=== PATIENT | female | born 1940 | race Caucasian/White ===

== ENCOUNTER 2018-05-12 15:06 | Inpatient (IN) | payer MEDICARE ==
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
[2018-05-12] MEDS ORDERED: Sodium Chloride 0.9% 1000 ML 1,000 ML IV STA (15:50)
[2018-05-12] MEDS ORDERED: Zofran 4 MG/2 ML VIAL IV ONE (15:53)
[2018-05-12] MEDS ORDERED: MORPHINE SULFATE 2 MG INJ IV ONE ×2 (15:53→19:10)
[2018-05-12 16:16] LABS: BASOPHIL % 0.1 % (0.0-0.4); Basophil (Absolute #) 0.02 (0-0.4); Eosinophil % 0.2 % (0.00-5.0); Eosinophil (Absolute #) 0.03 (0-0.5); Granulocyte Absolute (ANC) 15.52 (1.4-6.9); Granulocytes % 86.3 % (36.0-66.0); Hematocrit 36.4 % (35-47); Hemoglobin 11.6 gm/dl (12.0-16.0); Lymphocyte (Absolute #) 1.26 (1.0-4.6); Mean Cell Volume 89.9 fl (78-100); Mean Corpuscular Hemoglobin 28.6 pg (26-32); Mean Corpuscular Hgb Concent. 31.9 g/dl (32-36); Mean Platelet Volume 9.9 fl (6-9.5); Monocyte (Absolute #) 1.15 (0.0-1.3); Monocytes % 6.4 % (0.0-12.0); Platelet Count 222 K/mm3 (150-450); Red Blood Count 4.05 M/mm3 (4.1-5.4); Red Cell Distribution Width 15.6 % (11.5-14.0)
[2018-05-12 16:25] LABS: ALBUMIN 3.5 g/dL (3.5-5.0); BILIRUBIN,TOTAL 0.7 mg/dL (0.2-1.3); Calcium 9.2 mg/dL (8.4-10.2); Creatinine 1 2.85 mg/dL (0.52-1.04); Potassium 3.9 mmol/L (3.5-5.1); Total Protein 6.5 g/dL (6.3-8.2)
[2018-05-12] MEDS ORDERED: MORPHINE SULFATE 2 MG INJ ONE ×2 (16:39→19:22)
[2018-05-12] MEDS ORDERED: Zofran 4 MG/2 ML VIAL ONE (16:39)
[2018-05-12] MEDS ORDERED: Sodium Chloride 0.9% 1000 ML 1,000 ML ONE (16:40)
--- NOTE | 2018-05-12 16:48 | XRAY ---
Indication: Pain following fall 2 days ago. Multiple contiguous axial images obtained through the head without contrast. Comparison: None Age-appropriate global atrophy and minimal periventricular degenerative micro-ischemia. No acute intracranial hemorrhage, abnormal extra-axial fluid collection, or mass effect. Fourth ventricle is midline without hydrocephalus. Bony calvarium intact. Visualized paranasal sinuses and mastoid air cells are clear. Impression: Nonacute senile brain. CTDI 50.97
--- NOTE | 2018-05-12 16:52 | XRAY ---
Indication: Pain following fall 2 days ago. Multiple contiguous axial images obtained through the cervical spine. Sagittal and coronal reformatted images obtained. Comparison: None Age-related osteopenia. Axial images negative for acute fracture, suspicious bony lesions, or spinal canal stenosis. Minimal multilevel anterior endplate spurring. Mild C2-C5 degenerative facet hypertrophy, left greater than right. Sagittal and coronal reformatted images demonstrates normal alignment with disc spaces maintained. No acute compression fracture, subluxation, or jumped facet. Normal appearing craniocervical junction. Visualized noncontrasted soft tissues demonstrates mild scattered carotid calcifications bilaterally and mild left apical pleural-parenchymal scarring. CT head reported separately. Impression: 1. Negative acute fracture/subluxation. 2. Osteopenia and multilevel degenerative changes. CTDI 52.29
--- NOTE | 2018-05-12 17:00 | XRAY ---
Indication: Pain following fall. Comparison: None 3 views of the lumbar spine demonstrate 5 lumbar vertebral segments in normal alignment with vertebral body heights and disc spaces maintained. There is osteopenia, mild multilevel degenerative spondylosis, extensive vascular calcifications, and right upper quadrant surgical clips. No other bony, articular, or soft tissue abnormalities. Impression: Nonacute lumbar spine with chronic features.
--- NOTE | 2018-05-12 17:02 | XRAY ---
Indication: Pain following fall. Comparison: None AP pelvis and 2 views of the left and right hip demonstrates osteopenia, mild bilateral hip degenerative arthropathy, mild degenerative changes of the visualized lumbar spine, mild degenerative changes of the pubis symphysis, small left intratrochanteric bone island, bilateral gluteal calcified injection granulomas, extensive scattered vascular calcifications, and overlying suture material.. No other bony, articular, or soft tissue abnormalities. Impression: Nonacute exam with chronic features.
--- NOTE | 2018-05-12 17:04 | XRAY ---
Indication: Pain following fall. Comparison: None 3 views of the right elbow demonstrates mild osteopenia, small olecranon process spurring, scattered vascular calcifications, and a IV access catheter. No other bony, articular, or soft tissue abnormalities.
[2018-05-12 20:34] LABS: Appearance CLOUDY (CLEAR); Bilirubin NEGATIVE (NEGATIVE); Blood LARGE Ery/ul (0-5); Glucose 50 mg/dL (NEGATIVE); Ketones NEGATIVE (NEGATIVE); Leukocyte Esterase SMALL (NEGATIVE); Nitrite NEGATIVE (NEGATIVE); Protein,Urine Dip 100 (Negative); Specific Gravity 1.012 (1.005-1.025); Urobilinogen NEGATIVE mg/dL (0-1)
[2018-05-12] MEDS ORDERED: LEVOFLOXACIN 750MG/150ML D5W 750 MG/150 ML BAG IV STA (20:51)
[2018-05-12] MEDS ORDERED: LEVOFLOXACIN 750MG/150ML D5W 750 MG/150 ML BAG IV ONE (21:14)
[2018-05-12] MEDS ORDERED: MORPHINE SULFATE 2 MG INJ IV PRN (22:28)
[2018-05-12] MEDS: Sodium Chloride 0.9% 1000 ML 1,000 ML IV SCH (22:38)
[2018-05-12] MEDS ORDERED: Sodium Chloride 0.9% 250 ML 250 ML IV SCH (23:29)
[2018-05-12] MEDS ORDERED: ZOCOR 20MG ONE (23:34)
[2018-05-12] MEDS: XARELTO 10 MG TABLET PO SCH (23:47)
[2018-05-12] MEDS: SUBLIMAZE 100 MCG/2 ML IV PRN (23:50)
[2018-05-13] MEDS ORDERED: Sodium Chloride 0.9% 250 ML 250 ML IV ONE (03:37)
[2018-05-13 05:31] LABS: BASOPHIL % 0.2 % (0.0-0.4); Basophil (Absolute #) 0.03 (0-0.4); Eosinophil % 1.3 % (0.00-5.0); Eosinophil (Absolute #) 0.18 (0-0.5); Granulocytes % 74.6 % (36.0-66.0); Hemoglobin 10.3 gm/dl (12.0-16.0); Lymphocyte (Absolute #) 1.96 (1.0-4.6); Lymphocytes % 14.1 % (24.0-44.0); Mean Cell Volume 89.9 fl (78-100); Mean Corpuscular Hgb Concent. 31.2 g/dl (32-36); Mean Platelet Volume 9.9 fl (6-9.5); Monocyte (Absolute #) 1.37 (0.0-1.3); Monocytes % 9.8 % (0.0-12.0); Platelet Count 179 K/mm3 (150-450); Red Blood Count 3.67 M/mm3 (4.1-5.4); Red Cell Distribution Width 15.3 % (11.5-14.0); White Blood Count 13.9 K/mm3 (4.0-10.5)
[2018-05-13 05:44] LABS: ANION GAP 11.1 MEQ/L (5-15); Calcium 8.6 mg/dL (8.4-10.2); Creatinine 1 3.08 mg/dL (0.52-1.04); Potassium 3.5 mmol/L (3.5-5.1)
[2018-05-13] MEDS ORDERED: GlucaGen 1 MG IM PRN (05:51)
[2018-05-13] MEDS ORDERED: D50W 50 ml Abboject IV PRN (05:51)
[2018-05-13] MEDS ORDERED: Glutose 15 GM ORAL GEL PO PRN (05:51)
[2018-05-13] MEDS ORDERED: D50W 50 ml Abboject IV ONE (05:55)
[2018-05-13 06:25] LABS: BAND 2 % (0.0-2.0); Eosinophil 1 % (0.00-3.0); Lymphocytes 15 % (24-44); Monocyte 7 % (0.0-12.0); Neutrophils 75 % (36.0-66.0); Total Cells Counted 100
[2018-05-13 06:27] LABS: ANISOCYTOSIS 1+; Platelet Estimate NORMAL (NORMAL); Poikilocytosis 1+
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
[2018-05-13] MEDS ORDERED: Sodium Chloride 0.9% 500 ML 500 ML IV ONE (08:59)
--- NOTE | 2018-05-13 09:47 | XRAY ---
Indication: Pain. Comparison: None AP/lateral right knee demonstrates moderate/advanced tricompartmental degenerative changes, medial vascular clips, and scattered vascular calcifications. No other bony, articular, or soft tissue abnormalities.
--- NOTE | 2018-05-13 09:50 | XRAY ---
Indication: Pain. 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 No other bony, articular, or soft tissue abnormalities.
[2018-05-13] MEDS: Lopressor 50 MG PO SCH (09:55)
[2018-05-13] MEDS: Protonix 40MG Tablet PO SCH (09:55)
[2018-05-13] MEDS ORDERED: NON-FORMULARY ITEM (Omeprazole 20 Mg [Prilosec 20 Mg] 20 MG) PO SCH (10:00)
[2018-05-13] MEDS: Sodium Chloride 0.9% 1000 ML 1,000 ML IV SCH ×2 (15:17→22:14)
[2018-05-13] MEDS ORDERED: ZOCOR 20MG PO SCH (22:00)
[2018-05-13] MEDS: XARELTO 10 MG TABLET PO SCH (22:16)
[2018-05-14] MEDS: SUBLIMAZE 100 MCG/2 ML IV PRN (02:31)
[2018-05-14] MEDS: Sodium Chloride 0.9% 1000 ML 1,000 ML IV SCH (04:57)
[2018-05-14] MEDS: PERCOCET TABLET 5/325MG PO PRN ×2 (05:41→16:38)
[2018-05-14 05:54] LABS: BASOPHIL % 0.1 % (0.0-0.4); Basophil (Absolute #) 0.02 (0-0.4); Eosinophil (Absolute #) 0.13 (0-0.5); Granulocyte Absolute (ANC) 10.36 (1.4-6.9); Granulocytes % 76.8 % (36.0-66.0); Hematocrit 31.3 % (35-47); Hemoglobin 9.7 gm/dl (12.0-16.0); Lymphocyte (Absolute #) 1.72 (1.0-4.6); Lymphocytes % 12.8 % (24.0-44.0); Mean Cell Volume 90.7 fl (78-100); Mean Corpuscular Hemoglobin 28.1 pg (26-32); Monocyte (Absolute #) 1.25 (0.0-1.3); Monocytes % 9.3 % (0.0-12.0); Platelet Count 171 K/mm3 (150-450); Red Blood Count 3.45 M/mm3 (4.1-5.4); Red Cell Distribution Width 15.4 % (11.5-14.0); White Blood Count 13.5 K/mm3 (4.0-10.5)
[2018-05-14 06:14] LABS: ALBUMIN 2.7 g/dL (3.5-5.0); ANION GAP 13.4 MEQ/L (5-15); BILIRUBIN,TOTAL 0.5 mg/dL (0.2-1.3); Calcium 8.5 mg/dL (8.4-10.2); Creatinine 1 3.65 mg/dL (0.52-1.04); Potassium 4.3 mmol/L (3.5-5.1); Total Protein 5.3 g/dL (6.3-8.2)
--- NOTE | 2018-05-14 08:14 | PCM.NOTE ---
Date and Time: 05/14/18811 Subjective Assessment: patient still complains of hurting all over and legs feel weak, states she feels slightly better than arrived Objective Exam General Appearance: no apparent distress, obese Neurologic Exam: alert, oriented x 3 Skin Exam: normal color, warm, dry Respiratory Exam: normal breath sounds, lungs clear, No respiratory distress Cardiovascular Exam: regular rate/rhythm, normal heart sounds Gastrointestinal/Abdomen Exam: soft, No tenderness, No mass OBJECTIVE DATA Vital Signs: Vital Signs - 24 hr Temp Pulse Resp BP Pulse Ox 05/14/18 07:56 96 05/14/18 07:44 98.3 F 89 18 120/56 96 05/14/18 04:00 98.2 F 92 H 21 119/56 96 05/14/18 00:00 97.7 F 87 18 157/67 99 05/13/18 19:37 97.9 F 90 16 108/49 97 05/13/18 19:10 100 05/13/18 16:00 97.8 F 80 18 101/69 96 05/13/18 15:32 96 05/13/18 14:56 99 05/13/18 12:00 98 F 75 18 103/48 95 Oxygen-Last 24 hours O2 Percentage 4 Liters = 36% Pain Assessment - Last Documented Pain Intensity 6 Pain Scale Used 0-10 Pain Scale Intake and Output: Intake & Output 05/11/18 05/12/18 05/13/18 05/14/18 11:59 11:59 11:59 11:59 Intake Total 1011 4794 Output Total 1100 Balance 1011 3694 Weight 92 kg 94.9 kg Lab Results: Accuchecks Date 05/13/18 Date 05/13/18 Date 05/13/18 Accucheck Value: 176 Accucheck Value: 146 Accucheck Value: 77 Lab Results-Last 24 Hours 05/12/18 05/13/18 05/14/18 Range/Units Unknown 13:57 05:38 WBC 13.5 H (4.0-10.5) K/mm3 RBC 3.45 L (4.1-5.4) M/mm3 Hgb 9.7 L (12.0-16.0) gm/dl Hct 31.3 L (35-47) % MCV 90.7 (78-100) fl MCH 28.1 (26-32) pg MCHC 31.0 L (32-36) g/dl RDW 15.4 H (11.5-14.0) % Plt Count 171 (150-450) K/mm3 MPV 10.0 H (6-9.5) fl Gran % 76.8 H (36.0-66.0) % Eos # (Auto) 0.13 (0-0.5) Absolute Lymphs (auto) 1.72 (1.0-4.6) Absolute Monos (auto) 1.25 (0.0-1.3) Lymphocytes % 12.8 L (24.0-44.0) % Monocytes % 9.3 (0.0-12.0) % Eosinophils % 1.0 (0.00-5.0) % Basophils % 0.1 (0.0-0.4) % Absolute Granulocytes 10.36 H (1.4-6.9) Basophils # 0.02 (0-0.4) Sodium (137-145) mmol/L Potassium (3.5-5.1) mmol/L Chloride (98-107) mmol/L Carbon Dioxide (22-30) mmol/L Anion Gap (5-15) MEQ/L BUN (7-17) mg/dL Creatinine (0.52-1.04) mg/dL Estimated GFR ML/MIN Glucose (74-106) mg/dL Hemoglobin A1c 6.52 H (4.5-6.0) % Calcium (8.4-10.2) mg/dL Total Bilirubin (0.2-1.3) mg/dL AST (14-36) U/L ALT (0-35) U/L Alkaline Phosphatase (38-126) U/L Serum Total Protein (6.3-8.2) g/dL Albumin (3.5-5.0) g/dL Urine pH 6.0 Urine Myoglobin 2120 H (0-24) ng/mL 05/14/18 Range/Units 05:38 WBC (4.0-10.5) K/mm3 RBC (4.1-5.4) M/mm3 Hgb (12.0-16.0) gm/dl Hct (35-47) % MCV (78-100) fl MCH (26-32) pg MCHC (32-36) g/dl RDW (11.5-14.0) % Plt Count (150-450) K/mm3 MPV (6-9.5) fl Gran % (36.0-66.0) % Eos # (Auto) (0-0.5) Absolute Lymphs (auto) (1.0-4.6) Absolute Monos (auto) (0.0-1.3) Lymphocytes % (24.0-44.0) % Monocytes % (0.0-12.0) % Eosinophils % (0.00-5.0) % Basophils % (0.0-0.4) % Absolute Granulocytes (1.4-6.9) Basophils # (0-0.4) Sodium 135 L (137-145) mmol/L Potassium 4.3 D (3.5-5.1) mmol/L Chloride 109 H (98-107) mmol/L Carbon Dioxide 17 L (22-30) mmol/L Anion Gap 13.4 (5-15) MEQ/L BUN 51 H (7-17) mg/dL Creatinine 3.65 H (0.52-1.04) mg/dL Estimated GFR 12.7 ML/MIN Glucose 153 H (74-106) mg/dL Hemoglobin A1c (4.5-6.0) % Calcium 8.5 (8.4-10.2) mg/dL Total Bilirubin 0.50 (0.2-1.3) mg/dL AST 108 H (14-36) U/L ALT 81 H (0-35) U/L Alkaline Phosphatase 68 (38-126) U/L Serum Total Protein 5.3 L (6.3-8.2) g/dL Albumin 2.7 L (3.5-5.0) g/dL Urine pH Urine Myoglobin (0-24) ng/mL Radiology Exams: Radiology Procedures Category Date Time Status ANKLE (2V) Routine Exams 05/13/18 09:36 Completed CERVICAL SPINE WO CONTRAST [CT] Stat Exams 05/12/18 15:51 Completed ELBOW (MINIMUM 3 VIEWS) Stat Exams 05/12/18 15:53 Completed HEAD WITHOUT CONTRAST [CT] Stat Exams 05/12/18 15:52 Completed HIPS ISHAN(2V) INCL PEL IF DONE Stat Exams 05/12/18 15:52 Completed KNEE (1 OR 2 VIEW) Routine Exams 05/13/18 09:36 Completed LUMBAR LIMITED (2 OR 3 VIEWS) Stat Exams 05/12/18 15:50 Completed Assessment/Plan (1) Rhabdomyolysis Current Visit: Yes Status: Acute Onset Date: ~05/13/18 Assessment & Plan: will repeat ck today, patient fluid rate has been increased and gregory anchored. 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 was given levaquin 750mg x 1 dose in ER when she arrived Code(s): N39.0 - URINARY TRACT INFECTION, SITE NOT SPECIFIED (4) Diabetes mellitus type 2 in nonobese Current Visit: Yes Status: Acute Onset Date: ~05/13/18 Code(s): E11.9 - TYPE 2 DIABETES MELLITUS WITHOUT COMPLICATIONS
[2018-05-14] MEDS: Lopressor 50 MG PO SCH (09:38)
[2018-05-14] MEDS: Protonix 40MG Tablet PO SCH (09:38)
[2018-05-14 13:20] LABS: Iron 53 ug/dL (37-170); Iron Saturation 25 % (20-39); TIBC 215 ug/dL (265-462)
[2018-05-14] MEDS: NON-FORMULARY ITEM PO SCH ×2 (13:48→22:14)
[2018-05-14 18:27] LABS: CREATININE,URINE RANDOM 39.4 MG/DL
[2018-05-14] MEDS: XARELTO 10 MG TABLET PO SCH (22:04)
[2018-05-15] MEDS: PERCOCET TABLET 5/325MG PO PRN ×3 (05:50→15:18)
[2018-05-15 06:06] LABS: BASOPHIL % 0.2 % (0.0-0.4); Basophil (Absolute #) 0.03 (0-0.4); Eosinophil (Absolute #) 0.27 (0-0.5); Granulocytes % 75.5 % (36.0-66.0); Hematocrit 32.8 % (35-47); Hemoglobin 10.3 gm/dl (12.0-16.0); Lymphocyte (Absolute #) 1.86 (1.0-4.6); Lymphocytes % 13.7 % (24.0-44.0); Mean Cell Volume 90.4 fl (78-100); Mean Corpuscular Hgb Concent. 31.4 g/dl (32-36); Mean Platelet Volume 9.6 fl (6-9.5); Monocyte (Absolute #) 1.17 (0.0-1.3); Monocytes % 8.6 % (0.0-12.0); Platelet Count 192 K/mm3 (150-450); Red Blood Count 3.63 M/mm3 (4.1-5.4); Red Cell Distribution Width 15.4 % (11.5-14.0); White Blood Count 13.5 K/mm3 (4.0-10.5)
[2018-05-15 06:15] LABS: Mean Corpuscular Hemoglobin 28.3 pg (26-32)
[2018-05-15 06:23] LABS: ALBUMIN 2.9 g/dL (3.5-5.0); ANION GAP 14.2 MEQ/L (5-15); BILIRUBIN,TOTAL 0.4 mg/dL (0.2-1.3); Calcium 8.9 mg/dL (8.4-10.2); Creatinine 1 4.28 mg/dL (0.52-1.04); Potassium 4.6 mmol/L (3.5-5.1); Total Protein 5.7 g/dL (6.3-8.2)
--- NOTE | 2018-05-15 08:48 | PCM.NOTE ---
Date and Time: 05/15/18 0846 Subjective Assessment: patient is still hurting all over. tolerating po intake, has urine output in gregory Objective Exam General Appearance: no apparent distress, alert Skin Exam: normal color, warm, dry Respiratory Exam: normal breath sounds, lungs clear, No respiratory distress Cardiovascular Exam: regular rate/rhythm, normal heart sounds Gastrointestinal/Abdomen Exam: soft, No tenderness, No mass Extremity Exam: normal inspection, normal range of motion OBJECTIVE DATA Vital Signs: Vital Signs - 24 hr Temp Pulse Resp BP Pulse Ox 05/15/18 07:04 98.1 F 94 H 19 113/53 98 05/15/18 06:30 98 05/15/18 04:00 98 F 91 H 20 142/67 98 05/14/18 23:43 97.9 F 77 18 126/56 98 05/14/18 19:16 98.3 F 76 18 135/56 99 05/14/18 18:56 99 05/14/18 16:32 97.8 F 87 20 117/52 99 05/14/18 12:00 98.1 F 83 15 101/44 94 L Pain Assessment - Last Documented Pain Intensity 10 Pain Scale Used 0-10 Pain Scale Intake and Output: Intake & Output 05/12/18 05/13/18 05/14/18 05/15/18 11:59 11:59 11:59 11:59 Intake Total 1011 5034 540 Output Total 1100 650 Balance 1011 3934 -110 Weight 92 kg 94.9 kg 101.7 kg Lab Results: Accuchecks Date 05/15/18 Date 05/14/18 Date 05/14/18 Date 05/14/18 Time 22:15 Time 16:30 Time 10:56 Accucheck Value: 162 Accucheck Value: 207 Accucheck Value: 238 Accucheck Value: 196 Lab Results-Last 24 Hours 05/14/18 05/14/18 05/14/18 Range/Units 05:38 13:00 18:13 WBC (4.0-10.5) K/mm3 RBC (4.1-5.4) M/mm3 Hgb (12.0-16.0) gm/dl Hct (35-47) % MCV (78-100) fl MCH (26-32) pg MCHC (32-36) g/dl RDW (11.5-14.0) % Plt Count (150-450) K/mm3 MPV (6-9.5) fl Gran % (36.0-66.0) % Eos # (Auto) (0-0.5) Absolute Lymphs (auto) (1.0-4.6) Absolute Monos (auto) (0.0-1.3) Lymphocytes % (24.0-44.0) % Monocytes % (0.0-12.0) % Eosinophils % (0.00-5.0) % Basophils % (0.0-0.4) % Absolute Granulocytes (1.4-6.9) Basophils # (0-0.4) Sodium (137-145) mmol/L Potassium (3.5-5.1) mmol/L Chloride (98-107) mmol/L Carbon Dioxide (22-30) mmol/L Anion Gap (5-15) MEQ/L BUN (7-17) mg/dL Creatinine (0.52-1.04) mg/dL Estimated GFR ML/MIN Glucose (74-106) mg/dL Calcium (8.4-10.2) mg/dL Magnesium (1.6-2.3) mg/dL Iron 53 (37-170) ug/dL TIBC 215 L (265-462) ug/dL Iron Saturation 25 (20-39) % Total Bilirubin (0.2-1.3) mg/dL AST (14-36) U/L ALT (0-35) U/L Alkaline Phosphatase (38-126) U/L Creatine Kinase 1417 H (30-135) U/L Serum Total Protein (6.3-8.2) g/dL Albumin (3.5-5.0) g/dL Ur Random Creatinine 39.4 MG/DL U Random Total Protein 77 H (0-12) mg/dL Urine Sodium (30-90) mmol/L 05/14/18 05/15/18 05/15/18 Range/Units Unknown 05:40 05:40 WBC 13.5 H (4.0-10.5) K/mm3 RBC 3.63 L (4.1-5.4) M/mm3 Hgb 10.3 L (12.0-16.0) gm/dl Hct 32.8 L (35-47) % MCV 90.4 (78-100) fl MCH 28.3 (26-32) pg MCHC 31.4 L (32-36) g/dl RDW 15.4 H (11.5-14.0) % Plt Count 192 (150-450) K/mm3 MPV 9.6 H (6-9.5) fl Gran % 75.5 H (36.0-66.0) % Eos # (Auto) 0.27 (0-0.5) Absolute Lymphs (auto) 1.86 (1.0-4.6) Absolute Monos (auto) 1.17 (0.0-1.3) Lymphocytes % 13.7 L (24.0-44.0) % Monocytes % 8.6 (0.0-12.0) % Eosinophils % 2.0 (0.00-5.0) % Basophils % 0.2 (0.0-0.4) % Absolute Granulocytes 10.20 H (1.4-6.9) Basophils # 0.03 (0-0.4) Sodium 138 (137-145) mmol/L Potassium 4.6 (3.5-5.1) mmol/L Chloride 111 H (98-107) mmol/L Carbon Dioxide 17 L (22-30) mmol/L Anion Gap 14.2 (5-15) MEQ/L BUN 61 H (7-17) mg/dL Creatinine 4.28 H (0.52-1.04) mg/dL Estimated GFR 10.6 ML/MIN Glucose 162 H (74-106) mg/dL Calcium 8.9 (8.4-10.2) mg/dL Magnesium 2.4 H (1.6-2.3) mg/dL Iron (37-170) ug/dL TIBC (265-462) ug/dL Iron Saturation (20-39) % Total Bilirubin 0.40 (0.2-1.3) mg/dL AST 90 H (14-36) U/L ALT 87 H (0-35) U/L Alkaline Phosphatase 72 (38-126) U/L Creatine Kinase (30-135) U/L Serum Total Protein 5.7 L (6.3-8.2) g/dL Albumin 2.9 L (3.5-5.0) g/dL Ur Random Creatinine MG/DL U Random Total Protein (0-12) mg/dL Urine Sodium 37 (30-90) mmol/L Radiology Exams: Radiology Procedures Category Date Time Status ANKLE (2V) Routine Exams 05/13/18 09:36 Completed KNEE (1 OR 2 VIEW) Routine Exams 05/13/18 09:36 Completed Multi-Disciplinary Progress Notes: Multi-Disciplinary Progress Notes 05/14/18 16:36 Physical Therapy Note by Ana Johnson Patient was seen at bedside for total of 32 minutes for therapeutic exercise x 22 minutes and functional mobility training x 10 minutes. Performed active LE x 10 reps - ankle pumps, quad sets, glut sets, hip IR/ER and active-assisted ROM x 10 reps - heel slides, hip abd/adduction, SLR. Patient reporting increased pain right hip and knee with ROM. Verbalizing some soreness with left hip and knee but to a lesser degree Sat on EOB with mod assist and use of bedrail. Once weight centered patient able to sit on EOB without CGA Stood at bedside with walker. Able to come to stand with min assist. Flexed posture in standing at hips and knees. Only tolerated standing x 30 seconds. Assisted back to bed with min assist for LE placement then assist of 2 with draw sheet to position properly in bed. Patient was complaining of heels being sore. No observed redness or softening. Heels were elevated off bed. Patient reported no increase in pain after treatment. Initialized on 05/14/18 16:36 - END OF NOTE 05/14/18 15:33 Case Management Note by Kalie Edwards LEVEL I WELL LEVEL OF CARE IS ON QUEUE Initialized on 05/14/18 15:33 - END OF NOTE 05/14/18 14:46 Case Management Note by Jeni Mccord IMPORTANT MESSAGE FROM [employer] SIGNED AND PLACED ON THE CHART. Initialized on 05/14/18 14:46 - END OF NOTE 05/14/18 14:41 Case Management Note by Jeni Mccord S/W PT AND LAY CAREGIVER (GUSTAVO SHIRLEY) RE: REHAB STAY AT [facility] FOR PT/OT AND THEY WERE AGREEABLE W/ THIS PLAN. MM NOTIFIED OF REFERRAL AND CLINICAL DATA FAXED TO THEM. STAFF FROM [facility] WILL COME TO ASSESS PT LATER. WILL CONT. TO FOLLOW PT DURING THIS STAY TO ASSESS FOR OTHER D/C NEEDS. Initialized on 05/14/18 14:41 - END OF NOTE Assessment/Plan (1) Rhabdomyolysis Current Visit: Yes Status: Acute Onset Date: ~05/13/18 Assessment & Plan: cpk trending down and LFT's are improving. Code(s): M62.82 - RHABDOMYOLYSIS (2) Renal insufficiency Current Visit: Yes Status: Acute Onset Date: ~05/13/18 Assessment & Plan: worsening at this time, will continue to monitor. appreciate nephrology consult (3) UTI (urinary tract infection) Current Visit: Yes Status: Acute Onset Date: ~05/12/18 Assessment & Plan: rocephin ordered based on culture and avoid nephrotoxic drugs at this time Code(s): N39.0 - URINARY TRACT INFECTION, SITE NOT SPECIFIED (4) Diabetes mellitus type 2 in nonobese Current Visit: Yes Status: Acute Onset Date: ~05/13/18 Code(s): E11.9 - TYPE 2 DIABETES MELLITUS WITHOUT COMPLICATIONS
[2018-05-15] MEDS: Protonix 40MG Tablet PO SCH (09:13)
[2018-05-15] MEDS: Lopressor 50 MG PO SCH (09:13)
[2018-05-15] MEDS: NON-FORMULARY ITEM PO SCH ×2 (09:14→21:44)
[2018-05-15] MEDS: ROCEPHIN 1 Gm-D5w 50 ml Bag** 1 G/50 ML IVPB IV SCH (09:17)
--- NOTE | 2018-05-15 13:37 | XRAY ---
Indication: detention rehabilitation stay. Comparison: January 31, 2015. Portable chest remains clear. Heart is not enlarged for AP portable technique and again demonstrates CABG surgery. Bony thorax intact again with mild osteopenia and degenerative changes. Impression: Stable nonacute chest with chronic features.
[2018-05-15] MEDS ORDERED: NovoLOG Insulin SQ PRN (16:06)
[2018-05-15] MEDS: Norco 10/325 MG Tablet PO PRN (21:38)
[2018-05-15] MEDS: XARELTO 10 MG TABLET PO SCH (21:39)
[2018-05-16] MEDS: Norco 10/325 MG Tablet PO PRN ×2 (03:35→11:34)
[2018-05-16 05:45] LABS: BASOPHIL % 0.3 % (0.0-0.4); Basophil (Absolute #) 0.04 (0-0.4); Eosinophil % 2.6 % (0.00-5.0); Eosinophil (Absolute #) 0.33 (0-0.5); Granulocyte Absolute (ANC) 9.44 (1.4-6.9); Granulocytes % 74.2 % (36.0-66.0); Hematocrit 32.2 % (35-47); Hemoglobin 10.1 gm/dl (12.0-16.0); Lymphocyte (Absolute #) 1.88 (1.0-4.6); Lymphocytes % 14.8 % (24.0-44.0); Mean Cell Volume 91.2 fl (78-100); Mean Corpuscular Hemoglobin 28.6 pg (26-32); Mean Corpuscular Hgb Concent. 31.4 g/dl (32-36); Mean Platelet Volume 9.9 fl (6-9.5); Monocyte (Absolute #) 1.03 (0.0-1.3); Monocytes % 8.1 % (0.0-12.0); Platelet Count 195 K/mm3 (150-450); Red Blood Count 3.53 M/mm3 (4.1-5.4); Red Cell Distribution Width 15.7 % (11.5-14.0); White Blood Count 12.7 K/mm3 (4.0-10.5)
[2018-05-16 06:03] LABS: ALBUMIN 2.8 g/dL (3.5-5.0); ANION GAP 13.1 MEQ/L (5-15); BILIRUBIN,TOTAL 0.5 mg/dL (0.2-1.3); Calcium 8.9 mg/dL (8.4-10.2); Creatinine 1 4.36 mg/dL (0.52-1.04); Potassium 4.4 mmol/L (3.5-5.1); Total Protein 5.5 g/dL (6.3-8.2)
[2018-05-16] MEDS: NON-FORMULARY ITEM PO SCH (09:50)
[2018-05-16] MEDS: Protonix 40MG Tablet PO SCH (09:50)
[2018-05-16] MEDS: Lopressor 50 MG PO SCH (09:50)
[2018-05-16] MEDS: ROCEPHIN 1 Gm-D5w 50 ml Bag** 1 G/50 ML IVPB IV SCH (09:51)
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
--- NOTE | 2018-05-16 10:48 | PCM.DS ---
Discharge Summary Date of Admission: 05/13/18 08:40 Admitting Physician: ROSALBA DAI Consults: Consults on Case 05/13/18 05:51 Notify Physician 05/13/18 08:46 Consult Nephrology ROUTINE Primary Care Provider: ROSALBA DAI Allergies Allergies Penicillins Allergy (Verified 05/12/18 22:42) Sulfa (Sulfonamide Antibiotics) [Sulfa(Sulfonamide Antibiotics)] Allergy ( Verified 05/12/18 22:42) Hospital Summary - Hospital Course Hospital Course: is a 78 year old female pt of Dr. Dai with chronic back pain and osteoarthritis, HTN, afib (on xarelto), hx CABG remotely, chronic renal insufficiency, and DM II who fell 6 d ago and spent 12h down on the floor. She came to the ER two days later because she felt she was feeling worse, with pain in he legs, hips, back, and neck. She was found to have a CK of 3154 and elevated BUN and creatinine (43/2.85). She was admitted on IV fluids. Her creatinine worsened over the next few days so nephrology was consulted. This morning her BUN is 67 and her Cr is 4.[address] Lainez would like her transferred to [facility]. On admission, her CT head was nonacute. CXR non acute. CT c-spine neg for fracture, showed osteopenia and multilevel degen changes. Lumbar XR non acute, chronic features. Hip/pelvis XR no fx, osteopenia, degen changes, L intratrochanteric bone island , extensive scattered vascular calcifications R Elbow XR no fx, osteopenia, spurring, fasc calcifications R ankle XR no acute fx, old fx with intact hardware, degenerative changes, heel spurs, vascular calcifications R knee XR no fx, mod/advances tricompartmental degenerative changes, medial vascular clips, scattered vascular calcifications. Pt's urine indicated possible UTI; in the ER she was given 1 dose of levaquin. Further antibiotics were held until her urine culture showed K. pneumoniae and she was given IV rocephin - today is day #2. Blood sugars have been 177-238, aside from one low of 77, after which her insulin was held. Pt's DAVID inhibitor was also held since her admission. Today she is overall not feeling well. Has an emesis bag which is empty, states she vomited once this morning. Complains of pain in the L ankle, which is new since yesterday, on lateral malleolus when anything touches it. - Vitals & Intake/Output Vital Signs: Vital Signs Temperature 98.2 F 05/16/18 08:00 Pulse Rate 85 05/16/18 08:00 Respiratory Rate 18 05/16/18 08:00 Blood Pressure 137/62 05/16/18 08:00 O2 Sat by Pulse Oximetry 99 05/16/18 08:00 Oxygen-Last Documented O2 Percentage 4 Liters = 36% Intake & Output: Intake & Output 05/13/18 05/14/18 05/15/18 05/16/18 11:59 11:59 11:59 11:59 Intake Total 1011 5034 780 820 Output Total 3211 593 8298 Balance 1011 3934 130 -355 Weight 92 kg 94.9 kg 101.7 kg 96.2 kg - Lab Result Diagrams: 05/16/18 05:35 05/16/18 05:35 Lab Results-Last 24 Hrs: Accuchecks Date 05/15/18 Date 05/15/18 Date 05/15/18 Time 21:30 Time 16:16 Accucheck Value: 127 Accucheck Value: 163 Accucheck Value: 207 Accucheck Value: 171 Lab Results-Last 24 Hours 05/16/18 05/16/18 05/16/18 Range/Units 05:35 05:35 05:35 WBC 12.7 H (4.0-10.5) K/mm3 RBC 3.53 L (4.1-5.4) M/mm3 Hgb 10.1 L (12.0-16.0) gm/dl Hct 32.2 L (35-47) % MCV 91.2 (78-100) fl MCH 28.6 (26-32) pg MCHC 31.4 L (32-36) g/dl RDW 15.7 H (11.5-14.0) % Plt Count 195 (150-450) K/mm3 MPV 9.9 H (6-9.5) fl Gran % 74.2 H (36.0-66.0) % Eos # (Auto) 0.33 (0-0.5) Absolute Lymphs (auto) 1.88 (1.0-4.6) Absolute Monos (auto) 1.03 (0.0-1.3) Lymphocytes % 14.8 L (24.0-44.0) % Monocytes % 8.1 (0.0-12.0) % Eosinophils % 2.6 (0.00-5.0) % Basophils % 0.3 (0.0-0.4) % Absolute Granulocytes 9.44 H (1.4-6.9) Basophils # 0.04 (0-0.4) Sodium 138 (137-145) mmol/L Potassium 4.4 (3.5-5.1) mmol/L Chloride 109 H (98-107) mmol/L Carbon Dioxide 19 L (22-30) mmol/L Anion Gap 13.1 (5-15) MEQ/L BUN 67 H (7-17) mg/dL Creatinine 4.36 H (0.52-1.04) mg/dL Estimated GFR 10.4 ML/MIN Glucose 127 H (74-106) mg/dL Calcium 8.9 (8.4-10.2) mg/dL Total Bilirubin 0.50 (0.2-1.3) mg/dL AST 77 H (14-36) U/L ALT 86 H (0-35) U/L Alkaline Phosphatase 60 (38-126) U/L Creatine Kinase 1181 H (30-135) U/L Serum Total Protein 5.5 L (6.3-8.2) g/dL Albumin 2.8 L (3.5-5.0) g/dL Micro Results-Entire Visit: Microbiology 05/13/18 14:28 Urine Culture - Final Urine, Indwelling Catheter NO GROWTH 05/12/18 Unknown Urine Culture - Final Urine, Void Klebsiella Pneumoniae Accuchecks Date 05/15/18 Date 05/15/18 Date 05/15/18 Time 21:30 Time 16:16 Accucheck Value: 127 Accucheck Value: 163 Accucheck Value: 207 Accucheck Value: 171 - Radiology Exams Ordered Rad Exams-Entire Visit: Radiology Procedures Category Date Time Status CHEST 1 VIEW (PORTABLE) Routine Exams 05/15/18 12:41 Completed - Procedures and Test Procedures and Tests throughout Hospitalization: Therapy Orders & Screens 05/12/18 22:28 PT Eval & Treat ( Order) ROUTINE Reason for Eval:: pt was found down after a fall. 2 days ago. pt tripped over her walker and could not get up Diagnosis: uti 05/13/18 00:28 OT Screen per Nursing Assess Comment: Protocol Order Physician Instructions: Greater than 3 points order OT Admission Screening Reason For Exam: Triggered on Admission Diagnosis: Leukocytosis; UTI Open Wound/Cellutlitis/Pressure Ulcers: No Acute Fx/ORIF/Change in wt bearing status: No Severe MUSCULOSKELETAL pain: Yes ADL Dysfunction: Yes Acute CVA w/Hemiparesis/Hemiplegia: No Decreased Functional Mobility/Strength: Yes Sprain/Strain: No Acute Post-op Mobility Dysfunction: No Total Points: 9 PT Screen per Nursing Assess Comment: Protocol Order Physician Instructions: Greater than 3 points order PT Admission Screenin Reason For Exam: Triggered on Admission Diagnosis: Leukocytosis; UTI Open Wound/Cellutlitis/Pressure Ulcers: No Acute Fx/ORIF/Change in wt bearing status: No Severe MUSCULOSKELETAL pain: Yes ADL Dysfunction: Yes Acute CVA w/Hemiparesis/Hemiplegia: No Decreased Functional Mobility/Strength: Yes Sprain/Strain: No Acute Post-op Mobility Dysfunction: No Total Points: 9 05/13/18 03:52 Oxygen NASAL CANNULA 2 lpm Comment: Diagnosis: Leukocytosis; UTI Discharge Exam General Appearance: mild distress, anxiety Neurologic Exam: alert, oriented x 3, cooperative Skin Exam: normal color, warm, dry, No rash Ears, Nose, Throat Exam: moist mucous membranes Neck Exam: normal inspection Respiratory Exam: normal breath sounds, lungs clear, No crackles/rales, No rhonchi, No wheezing Cardiovascular Exam: regular rate/rhythm, normal heart sounds, No murmur Gastrointestinal/Abdomen Exam: soft, normal bowel sounds, No tenderness, No distention, No mass, No guarding, No rebound Extremity Exam: other (L ankle edema laterally; quite ttp. no erythema. pedal pulse +. no pretibial edema bilat) Final Diagnosis/Problem List - Final Discharge Diagnosis/Problem (1) Rhabdomyolysis Current Visit: Yes Status: Acute Onset Date: ~05/13/18 Assessment & Plan: CK has decreased, but renal function has continued to worsen. Transferring to [facility] per Dr. Lainez, thank you. Pt is reluctant to transfer but I advised this is the best course of action. (2) Renal insufficiency Current Visit: Yes Status: Acute Onset Date: ~05/13/18 (3) Atrial fibrillation Current Visit: Yes Status: Chronic Assessment & Plan: Appears to be in sinus rhythm today. On xarelto 15mg at hs. (4) CAD (coronary artery disease) Current Visit: Yes Status: Chronic Assessment & Plan: hx remote CABG. (5) HTN (hypertension) Current Visit: Yes Status: Chronic Assessment & Plan: BP stable (6) Diabetes mellitus type 2 in nonobese Current Visit: Yes Status: Chronic Onset Date: ~05/13/18 (7) UTI (urinary tract infection) Current Visit: Yes Status: Acute Onset Date: ~05/12/18 Assessment & Plan: On day #2 of rocephin for K. pneumoniae UTI. - Discharge Disposition: DC TO [facility] Condition: Serious Prescriptions: No Action Omeprazole 20 MG [Prilosec 20 mg] 20 mg PO DAILY Rivaroxaban [Xarelto] 15 mg PO HS Ferrous Gluconate 324 mg PO DAILY Metoprolol Tartrate 50 mg PO DAILY Lisinopril [Zestril] 2.5 mg PO DAILY Insulin Detemir [Levemir] 60 unit SQ DAILY Insulin Lispro [Humalog] 20 unit SQ TIDWMEALS Rosuvastatin Calcium 40 mg PO HS Hydrocodone/Acetaminophen [Hydrocodone-Acetamin 7.5-325] 1 tab PO BID PRN Follow up with: ROSALBA DAI MD [Primary Care Provider] - 1 Week SHY STEIN [CONSULTING PHYSICIAN] - 09/14/18 2:20 pm
[2018-05-16 11:46] VITALS: BP 122/58; PULSE 86; O2SAT 98
--- NOTE | 2018-05-16 15:51 | XRAY ---
Indication: Lateral pain. Comparison: None AP/lateral left ankle demonstrates mild lateral soft tissue swelling, small heel spurs, and scattered vascular calcifications. No other bony, articular, or soft tissue abnormalities. Comment: Preliminary interpretation was made by [facility]. No critical discrepancy.
== END 2018-05-16 12:20 | disposition home or self-care (01) | DRG 558 ==
LOC: ED 15:06 → MED SURG 22:25 → OBSVTOIN 05-13 08:40
PROVIDERS: ADMIT Family Medicine; ATTEND Family Medicine
DX: M62.82 Rhabdomyolysis (principal); D72.829 Elevated white blood cell count, unspecified; N39.0 Urinary tract infection, site not specified; N18.4 Chronic kidney disease, stage 4 (severe); I48.91 Unspecified atrial fibrillation; E11.9 Type 2 diabetes mellitus without complications; Z79.4 Long term (current) use of insulin; I25.810 Atherosclerosis of coronary artery bypass graft(s) without angina pectoris; N28.9 Disorder of kidney and ureter, unspecified; I12.9 Hypertensive chronic kidney disease with stage 1 through stage 4 chronic kidney disease, or unspecified chronic kidney disease; N18.9 Chronic kidney disease, unspecified; Z79.899 Other long term (current) drug therapy; K21.9 Gastro-esophageal reflux disease without esophagitis; M79.606 Pain in leg, unspecified; M85.80 Other specified disorders of bone density and structure, unspecified site; W01.0XXA Fall on same level from slipping, tripping and stumbling without subsequent striking against object, initial encounter; M54.2 Cervicalgia; M25.559 Pain in unspecified hip; M54.5 Low back pain; M25.522 Pain in left elbow; M25.521 Pain in right elbow
CPT/HCPCS: 36000; 36415; 70450; 71045; 72100; 72125; 73080; 73521; 73560; 73600; 80048; 80053; 81001; 82550; 82570; 82962; 83036; 83540; 83550; 83735; 83874; 84156; 84300; 85025; 87077; 87086; 87186; 94760; 96360; 96374; 96375; 97110; 97116; 97161; 99285; G0378; P9612; J0696; J1956; J2270; J2405; J3010; A9270-GY

== ENCOUNTER 2018-07-14 07:59 | Emergency (ER) | payer MEDICARE ==
[2018-07-14] MEDS ORDERED: Sodium Chloride 0.9% 1000 ML 1,000 ML IV STA (08:15)
[2018-07-14] MEDS ORDERED: MORPHINE SULFATE 2 MG INJ IV ONE (08:30)
[2018-07-14] MEDS ORDERED: MORPHINE SULFATE 2 MG INJ ONE (08:33)
[2018-07-14] MEDS ORDERED: Sodium Chloride 0.9% 1000 ML 1,000 ML ONE (08:33)
[2018-07-14 08:37] LABS: A-aADO2 15; ABG HEMOGLOBIN 10.2; ABG POTASSIUM 3.9 (3.5-5.1); ARTERIAL BLD GAS O2 SATURATION 98.9 % (95-100); ARTERIAL BLOOD GAS BASE EXCESS 3.9 (-2.0-2.0); ARTERIAL BLOOD GAS FIO2 21 %; ARTERIAL BLOOD GAS PCO2 27 mmHg (35-45); ARTERIAL BLOOD GAS PO2 101 mmHg (75-100); CARBOXYHEMOGLOBIN 2.4 % THgb (0.0-6.9); HCO3- 25.3 (22-28); HGB O2 SAT 94.9 g/dF (94-100); Methhemoglobin 1.6 % (1.4-1.5); paO2 pAO1 0.87
[2018-07-14 08:38] LABS: ABG SITE LEFT BRACHIAL; ARTERIAL BLOOD GAS pH 7.58 (7.35-7.45)
[2018-07-14 08:40] LABS: BASOPHIL % 0.1 % (0.0-0.4); Basophil (Absolute #) 0.02 (0-0.4); Eosinophil % 0.1 % (0.00-5.0); Eosinophil (Absolute #) 0.01 (0-0.5); Granulocytes % 88.7 % (36.0-66.0); Hematocrit 30.8 % (35-47); Hemoglobin 9.8 gm/dl (12.0-16.0); Lactic Acid 2.5 (0.4-2.0); Lymphocytes % 2.6 % (24.0-44.0); Mean Cell Volume 90.1 fl (78-100); Mean Corpuscular Hgb Concent. 31.8 g/dl (32-36); Mean Platelet Volume 10.9 fl (6-9.5); Monocyte (Absolute #) 1.31 (0.0-1.3); Monocytes % 8.5 % (0.0-12.0); Platelet Count 201 K/mm3 (150-450); Red Blood Count 3.42 M/mm3 (4.1-5.4); Red Cell Distribution Width 16.1 % (11.5-14.0); White Blood Count 15.3 K/mm3 (4.0-10.5)
[2018-07-14 08:51] LABS: INR 2.47 (0.8-3.0)
[2018-07-14 08:53] LABS: Mean Corpuscular Hemoglobin 28.6 pg (26-32)
[2018-07-14 09:03] LABS: ALBUMIN 3.3 g/dL (3.5-5.0); Appearance CLOUDY (CLEAR); BILIRUBIN,TOTAL 1.5 mg/dL (0.2-1.3); Bacteria MANY /HPF (NEGATIVE); Bilirubin NEGATIVE (NEGATIVE); Blood LARGE Ery/ul (0-5); Calcium 8.7 mg/dL (8.4-10.2); Creatinine 1 1.97 mg/dL (0.52-1.04); Glucose NEGATIVE (NEGATIVE); Ketones NEGATIVE (NEGATIVE); Leukocyte Esterase LARGE (NEGATIVE); Nitrite NEGATIVE (NEGATIVE); Potassium 4.2 mmol/L (3.5-5.1); Protein,Urine Dip NEGATIVE (Negative); RBC >101 /HPF (0-2); Specific Gravity 1.005 (1.005-1.025); Total Protein 6.2 g/dL (6.3-8.2); Urobilinogen NEGATIVE mg/dL (0-1); WBC >100 /HPF (0-5)
--- NOTE | 2018-07-14 09:09 | XRAY ---
Indication: Pain following fall. Comparison: None 3 views of the right knee demonstrates osteopenia, mild/moderate tricompartmental degenerative changes, vascular clips, and heavy vascular calcifications. No other bony, articular, or soft tissue abnormalities.
--- NOTE | 2018-07-14 09:13 | XRAY ---
Indication: Pain following fall. Comparison: None AP pelvis and 2 views of the left and right hip demonstrates osteopenia, mild bilateral hip degenerative arthropathy, mild lower lumbar degenerative spondylosis, small left intertrochanteric bone island, partially visualized bilateral ureteral stent catheters, midline suture material, right inguinal vascular clip, bilateral gluteal calcified injection granulomas, and heavy vascular calcifications. No other bony, articular, or soft tissue abnormalities.
--- NOTE | 2018-07-14 09:15 | XRAY ---
Indication: Hypoxia. Status post fall. Comparison: May 15, 2018. Portable chest demonstrates new tiny left apical pneumothorax. Remaining lungs clear. Heart is not enlarged for AP portable technique again with CABG surgery. Bony thorax intact again with osteopenia and degenerative changes.
[2018-07-14 09:19] LABS: INFLUENZA A NEGATIVE (NEGATIVE); INFLUENZA B NEGATIVE (NEGATIVE); RESPIRATORY SYNCTIAL VIRUS NEGATIVE (Negative)
[2018-07-14] MEDS ORDERED: ROCEPHIN 1 Gm-D5w 50 ml Bag** 1 G/50 ML IVPB IV STA (09:24)
[2018-07-14] MEDS ORDERED: ROCEPHIN 1 Gm-D5w 50 ml Bag** 1 G/50 ML IVPB IV ONE (09:26)
[2018-07-14 09:31] LABS: BAND 6 % (0.0-2.0); Lymphocytes 6 % (24-44); Monocyte 4 % (0.0-12.0); Neutrophils 84 % (36.0-66.0); Platelet Estimate NORMAL (NORMAL); Total Cells Counted 100
[2018-07-14 09:57] VITALS: O2SAT 97
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
[2018-07-14 11:02] VITALS: BP 90/50; PULSE 126
== END 2018-07-14 11:05 | disposition short-term general hospital (02) ==
LOC: ED 07:59
DX: I48.91 Unspecified atrial fibrillation (principal); N39.0 Urinary tract infection, site not specified; D72.829 Elevated white blood cell count, unspecified; N28.9 Disorder of kidney and ureter, unspecified
CPT/HCPCS: 36415; 36600; 71045; 73522; 73562; 80053; 81001; 82375; 82550; 82803; 83605; 83880; 84484; 85025; 85610; 87631; 93005; 93041; 96360; 96374; 96375; 99285; G0480; 80307; J0696; J2270

== ENCOUNTER 2018-10-09 23:59 | Inpatient (IN) | payer MEDICARE ==
[2018-10-10] MEDS ORDERED: Levofloxacin 500MG/100ML D5W 500 MG/100 ML BAG IV STA (00:17)
[2018-10-10] MEDS ORDERED: Levofloxacin 500MG/100ML D5W 500 MG/100 ML BAG IV ONE (00:28)
[2018-10-10] MEDS ORDERED: Sodium Chloride 0.9% 1000 ML 1,000 ML IV SCH (00:30)
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
[2018-10-10 02:02] LABS: BASOPHIL % 0.2 % (0.0-0.4); Basophil (Absolute #) 0.03 (0-0.4); Eosinophil (Absolute #) 0.29 (0-0.5); Granulocyte Absolute (ANC) 11.82 (1.4-6.9); Granulocytes % 80.1 % (36.0-66.0); Hematocrit 28.4 % (35-47); Hemoglobin 8.6 gm/dl (12.0-16.0); Lymphocyte (Absolute #) 1.73 (1.0-4.6); Lymphocytes % 11.7 % (24.0-44.0); Mean Cell Volume 89.9 fl (78-100); Mean Corpuscular Hemoglobin 27.2 pg (26-32); Mean Corpuscular Hgb Concent. 30.3 g/dl (32-36); Mean Platelet Volume 8.9 fl (6-9.5); Monocyte (Absolute #) 0.88 (0.0-1.3); Platelet Count 337 K/mm3 (150-450); Red Blood Count 3.16 M/mm3 (4.1-5.4); Red Cell Distribution Width 15.9 % (11.5-14.0); White Blood Count 14.8 K/mm3 (4.0-10.5)
[2018-10-10 02:14] LABS: ALBUMIN 3.4 g/dL (3.5-5.0); ANION GAP 13.5 MEQ/L (5-15); BILIRUBIN,TOTAL 0.6 mg/dL (0.2-1.3); Calcium 9.3 mg/dL (8.4-10.2); Creatinine 1 1.92 mg/dL (0.52-1.04); Potassium 4.2 mmol/L (3.5-5.1); Total Protein 6.9 g/dL (6.3-8.2)
[2018-10-10] MEDS ORDERED: Zofran 4 MG/2 ML VIAL IV PRN (04:30)
[2018-10-10] MEDS: CLINDAMYCIN-D5W 600 MG/50 ML*** 600 MG/50 ML BAG IV SCH ×3 (06:27→22:07)
[2018-10-10] MEDS ORDERED: NovoLOG Insulin SQ SCH (08:00)
--- NOTE | 2018-10-10 08:25 | XRAY ---
Indication: Pain following fall. Comparison: None 2 views of the left lower leg demonstrates osteopenia, mild knee degenerative arthropathy, and heavy scattered vascular calcifications. No other bony, articular, or soft tissue abnormalities.
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
[2018-10-10] MEDS ORDERED: Zestril 5 MG PO SCH (10:00)
[2018-10-10] MEDS ORDERED: Klor Con 10 MEQ PO SCH (10:00)
[2018-10-10] MEDS ORDERED: Protonix 40MG Tablet PO SCH (10:00)
[2018-10-10] MEDS ORDERED: Lantus Insulin SQ SCH (10:00)
[2018-10-10] MEDS ORDERED: Lasix 40 MG PO SCH (10:00)
[2018-10-10] MEDS ORDERED: ULTRAM 50 MG PO PRN ×2 (11:28→11:34)
[2018-10-10] MEDS ORDERED: NON-FORMULARY ITEM (Cyclobenzaprine Hcl [Cyclobenzaprine Hcl] 5 MG) PO PRN (11:28)
[2018-10-10] MEDS ORDERED: PYRIDIUM 200 MG PO PRN (11:28)
[2018-10-10] MEDS ORDERED: TYLENOL 325 MG PO PRN (11:28)
[2018-10-10] MEDS ORDERED: Cyclobenzaprine 10 MG PO PRN (11:36)
[2018-10-10] MEDS ORDERED: BUMEX 1 MG PO SCH (11:45)
[2018-10-10] MEDS: Lopressor 25MG Tab PO SCH ×2 (11:50→22:07)
[2018-10-10] MEDS: ECOTRIN 81 MG PO SCH (11:50)
[2018-10-10] MEDS: Klor Con 10 MEQ PO SCH (11:51)
[2018-10-10] MEDS: Protonix 40MG Tablet PO SCH ×2 (11:51→22:06)
[2018-10-10 12:49] LABS: Folate (Folic Acid) 6.4 ng/mL (2.76 - >20)
[2018-10-10] MEDS: NORCO 5/325 MG PO PRN ×3 (13:29→21:54)
[2018-10-10] MEDS ORDERED: SUBLIMAZE 100 MCG/2 ML IV PRN (18:38)
[2018-10-10] MEDS ORDERED: NON-FORMULARY ITEM (Atorvastatin Calcium [Atorvastatin Calcium] 80 MG) PO SCH (22:00)
[2018-10-10] MEDS: XARELTO 10 MG TABLET PO SCH (22:06)
[2018-10-10] MEDS: ZOCOR 20MG PO SCH (22:06)
[2018-10-10] MEDS: Lantus Insulin SQ SCH (22:07)
[2018-10-10] MEDS: NEURONTIN 300 MG PO SCH (22:07)
[2018-10-11] MEDS: NORCO 5/325 MG PO PRN ×2 (05:00→13:15)
[2018-10-11] MEDS: CLINDAMYCIN-D5W 600 MG/50 ML*** 600 MG/50 ML BAG IV SCH ×3 (05:45→21:55)
[2018-10-11 06:16] LABS: Hematocrit 24.1 % (35-47); Hemoglobin 7.4 gm/dl (12.0-16.0); Mean Cell Volume 91.6 fl (78-100); Mean Corpuscular Hemoglobin 28.1 pg (26-32); Mean Corpuscular Hgb Concent. 30.7 g/dl (32-36); Mean Platelet Volume 9.5 fl (6-9.5); Platelet Count 249 K/mm3 (150-450); Red Blood Count 2.63 M/mm3 (4.1-5.4); Red Cell Distribution Width 16.1 % (11.5-14.0)
[2018-10-11 06:23] LABS: ALBUMIN 2.8 g/dL (3.5-5.0); ANION GAP 11.6 MEQ/L (5-15); BILIRUBIN,TOTAL 0.4 mg/dL (0.2-1.3); Calcium 8.6 mg/dL (8.4-10.2); Creatinine 1 1.91 mg/dL (0.52-1.04); Potassium 3.9 mmol/L (3.5-5.1)
[2018-10-11 08:34] LABS: BAND 2 % (0.0-2.0); Basophil 2 % (0.0-1.0); Eosinophil 2 % (0.00-3.0); Hypochromia 2+; Lymphocytes 32 % (24-44); Microcytosis 1+; Monocyte 4 % (0.0-12.0); Neutrophils 58 % (36.0-66.0); Platelet Estimate NORMAL (NORMAL); Total Cells Counted 100
--- NOTE | 2018-10-11 08:36 | XRAY ---
Indication: CHF. Lower extremity edema. Comparison: July 14, 2018. Portable apical lordotic chest less inflated and clear. Heart is borderline enlarged again with CABG surgery. Bony thorax intact again with osteopenia and degenerative changes. No new/acute findings. Impression: Borderline cardiomegaly. Negative acute pneumonic process or CHF.
--- NOTE | 2018-10-11 08:54 | PCM.NOTE ---
Date and Time: 10/11/18 0851 Subjective Assessment: patient still c/o swelling in legs, left leg painful. no other complaints, denies chest pain or dyspnea Objective Exam General Appearance: no apparent distress, alert, obese Neurologic Exam: alert Respiratory Exam: normal breath sounds, lungs clear, No respiratory distress Cardiovascular Exam: regular rate/rhythm, normal heart sounds Gastrointestinal/Abdomen Exam: soft, No tenderness, No mass Extremity Exam: pedal edema, swelling, other (bruising, mild erythema to left lower leg) OBJECTIVE DATA Vital Signs: Vital Signs - 24 hr Temp Pulse Resp BP Pulse Ox 10/11/18 07:29 97.7 F 97 H 18 99/55 96 10/11/18 04:00 97.0 F 77 18 107/66 99 10/11/18 00:05 97.2 F 81 16 92/56 98 10/10/18 20:00 97.5 F 89 20 110/53 95 10/10/18 15:19 97.7 F 80 20 90/58 96 10/10/18 12:34 98.2 F 82 20 102/64 97 Pain Assessment - Last Documented Pain Intensity 5 Pain Scale Used 0-10 Pain Scale Intake and Output: Intake & Output 10/08/18 10/09/18 10/10/18 10/11/18 11:59 11:59 11:59 11:59 Intake Total 120 2073 Balance 120 2073 Weight 88.4 kg Lab Results: Accuchecks Date 10/11/18 Date 10/10/18 Date 10/10/18 Date 10/10/18 Time 05:00 Time 22:00 Time 16:30 Time 11:30 Accucheck Value: 59 Accucheck Value: 146 Accucheck Value: 213 Accucheck Value: 148 Lab Results-Last 24 Hours 10/10/18 10/10/18 10/10/18 Range/Units 09:09 09:35 10:07 WBC (4.0-10.5) K/mm3 RBC (4.1-5.4) M/mm3 Hgb (12.0-16.0) gm/dl Hct (35-47) % MCV (78-100) fl MCH (26-32) pg MCHC (32-36) g/dl RDW (11.5-14.0) % Plt Count (150-450) K/mm3 MPV (6-9.5) fl Segmented Neutrophils (36.0-66.0) % Band Neutrophils (0.0-2.0) % Lymphocytes (Manual) (24-44) % Monocytes (Manual) (0.0-12.0) % Eosinophils (Manual) (0.00-3.0) % Basophils (Manual) (0.0-1.0) % Hypochromia Platelet Estimate (NORMAL) RBC Morphology Microcytosis D-Dimer (215-500) ng/mL Sodium (137-145) mmol/L Potassium (3.5-5.1) mmol/L Chloride (98-107) mmol/L Carbon Dioxide (22-30) mmol/L Anion Gap (5-15) MEQ/L BUN (7-17) mg/dL Creatinine (0.52-1.04) mg/dL Estimated GFR ML/MIN Glucose (74-106) mg/dL Hemoglobin A1c 5.80 (4.5-6.0) % Calcium (8.4-10.2) mg/dL Iron (37-170) ug/dL Ferritin 230 (11.1-264) ng/mL Total Bilirubin (0.2-1.3) mg/dL AST (14-36) U/L ALT (0-35) U/L Alkaline Phosphatase (38-126) U/L NT-Pro-B Natriuret Pep (0-1800) pg/mL Serum Total Protein (6.3-8.2) g/dL Albumin (3.5-5.0) g/dL Prealbumin 10.05 L (17.6-36.0) mg/dL Vitamin B12 736 (239-931) pg/mL Folic Acid 6.40 (2.76 - >20) ng/mL 10/10/18 10/10/18 10/10/18 Range/Units 10:07 19:25 19:25 WBC (4.0-10.5) K/mm3 RBC (4.1-5.4) M/mm3 Hgb (12.0-16.0) gm/dl Hct (35-47) % MCV (78-100) fl MCH (26-32) pg MCHC (32-36) g/dl RDW (11.5-14.0) % Plt Count (150-450) K/mm3 MPV (6-9.5) fl Segmented Neutrophils (36.0-66.0) % Band Neutrophils (0.0-2.0) % Lymphocytes (Manual) (24-44) % Monocytes (Manual) (0.0-12.0) % Eosinophils (Manual) (0.00-3.0) % Basophils (Manual) (0.0-1.0) % Hypochromia Platelet Estimate (NORMAL) RBC Morphology Microcytosis D-Dimer 304 (215-500) ng/mL Sodium (137-145) mmol/L Potassium (3.5-5.1) mmol/L Chloride (98-107) mmol/L Carbon Dioxide (22-30) mmol/L Anion Gap (5-15) MEQ/L BUN (7-17) mg/dL Creatinine (0.52-1.04) mg/dL Estimated GFR ML/MIN Glucose (74-106) mg/dL Hemoglobin A1c (4.5-6.0) % Calcium (8.4-10.2) mg/dL Iron 35 L (37-170) ug/dL Ferritin (11.1-264) ng/mL Total Bilirubin (0.2-1.3) mg/dL AST (14-36) U/L ALT (0-35) U/L Alkaline Phosphatase (38-126) U/L NT-Pro-B Natriuret Pep 3530 H (0-1800) pg/mL Serum Total Protein (6.3-8.2) g/dL Albumin (3.5-5.0) g/dL Prealbumin (17.6-36.0) mg/dL Vitamin B12 (239-931) pg/mL Folic Acid (2.76 - >20) ng/mL 10/11/18 10/11/18 Range/Units 05:55 05:55 WBC 8.0 (4.0-10.5) K/mm3 RBC 2.63 L (4.1-5.4) M/mm3 Hgb 7.4 L (12.0-16.0) gm/dl Hct 24.1 L (35-47) % MCV 91.6 (78-100) fl MCH 28.1 (26-32) pg MCHC 30.7 L (32-36) g/dl RDW 16.1 H (11.5-14.0) % Plt Count 249 (150-450) K/mm3 MPV 9.5 (6-9.5) fl Segmented Neutrophils 58 (36.0-66.0) % Band Neutrophils 2 (0.0-2.0) % Lymphocytes (Manual) 32 (24-44) % Monocytes (Manual) 4 (0.0-12.0) % Eosinophils (Manual) 2 (0.00-3.0) % Basophils (Manual) 2 H (0.0-1.0) % Hypochromia 2+ Platelet Estimate NORMAL (NORMAL) RBC Morphology ABNORMAL Microcytosis 1+ D-Dimer (215-500) ng/mL Sodium 138 (137-145) mmol/L Potassium 3.9 (3.5-5.1) mmol/L Chloride 99 (98-107) mmol/L Carbon Dioxide 31 H (22-30) mmol/L Anion Gap 11.6 (5-15) MEQ/L BUN 34 H (7-17) mg/dL Creatinine 1.91 H (0.52-1.04) mg/dL Estimated GFR 26.9 ML/MIN Glucose 59 L (74-106) mg/dL Hemoglobin A1c (4.5-6.0) % Calcium 8.6 (8.4-10.2) mg/dL Iron (37-170) ug/dL Ferritin (11.1-264) ng/mL Total Bilirubin 0.40 (0.2-1.3) mg/dL AST 19 (14-36) U/L ALT 19 (0-35) U/L Alkaline Phosphatase 127 H (38-126) U/L NT-Pro-B Natriuret Pep (0-1800) pg/mL Serum Total Protein 6.0 L (6.3-8.2) g/dL Albumin 2.8 L (3.5-5.0) g/dL Prealbumin (17.6-36.0) mg/dL Vitamin B12 (239-931) pg/mL Folic Acid (2.76 - >20) ng/mL Radiology Exams: Radiology Procedures Category Date Time Status CHEST 1 VIEW (PORTABLE) Routine Exams 10/10/18 18:40 Completed LOWER LEG Stat Exams 10/10/18 00:47 Completed Assessment/Plan (1) Acute on chronic systolic CHF (congestive heart failure) Current Visit: Yes Status: Acute Assessment & Plan: will change bumex to IV, mildly elevated bnp and swelling present Code(s): I50.23 - ACUTE ON CHRONIC SYSTOLIC (CONGESTIVE) HEART FAILURE (2) Cellulitis of left lower extremity Current Visit: Yes Status: Acute Assessment & Plan: continue clindamycin Code(s): L03.116 - CELLULITIS OF LEFT LOWER LIMB (3) Atrial fibrillation Current Visit: No Status: Chronic Code(s): I48.91 - UNSPECIFIED ATRIAL FIBRILLATION (4) CAD (coronary artery disease) Current Visit: No Status: Chronic Code(s): I25.10 - ATHSCL HEART DISEASE OF [place] CORONARY ARTERY W/O ANG PCTRS (5) Diabetes mellitus type 2 in nonobese Current Visit: No Status: Chronic Onset Date: ~05/13/18 Code(s): E11.9 - TYPE 2 DIABETES MELLITUS WITHOUT COMPLICATIONS (6) Anemia Current Visit: Yes Status: Acute Assessment & Plan: iron low, add ferrous sulfate Code(s): D64.9 - ANEMIA, UNSPECIFIED
[2018-10-11] MEDS: BUMEX 1 MG IV SCH (09:11)
[2018-10-11] MEDS: Klor Con 10 MEQ PO SCH (09:12)
[2018-10-11] MEDS: Lopressor 25MG Tab PO SCH ×2 (09:12→21:56)
[2018-10-11] MEDS: Protonix 40MG Tablet PO SCH ×2 (09:12→21:56)
[2018-10-11] MEDS: FEOSOL 325 MG PO SCH ×2 (09:12→21:55)
[2018-10-11] MEDS: ECOTRIN 81 MG PO SCH (09:12)
[2018-10-11] MEDS ORDERED: NON-FORMULARY ITEM (Potassium Chloride [K-Dur] 20 MEQ) PO SCH (10:00)
[2018-10-11] MEDS ORDERED: BUMETANIDE 4 MG PO SCH (10:00)
[2018-10-11] MEDS: Lantus Insulin SQ SCH (21:56)
[2018-10-11] MEDS: NEURONTIN 300 MG PO SCH (21:56)
[2018-10-11] MEDS: XARELTO 10 MG TABLET PO SCH (21:57)
[2018-10-11] MEDS: ZOCOR 20MG PO SCH (21:58)
[2018-10-12] MEDS: NORCO 5/325 MG PO PRN ×2 (00:45→06:29)
[2018-10-12 06:04] LABS: Hematocrit 26.1 % (35-47); Hemoglobin 7.8 gm/dl (12.0-16.0); Mean Cell Volume 90.9 fl (78-100); Mean Corpuscular Hgb Concent. 29.9 g/dl (32-36); Mean Platelet Volume 9.2 fl (6-9.5); Platelet Count 227 K/mm3 (150-450); Red Blood Count 2.87 M/mm3 (4.1-5.4); Red Cell Distribution Width 16.3 % (11.5-14.0); White Blood Count 7.8 K/mm3 (4.0-10.5)
[2018-10-12 06:21] LABS: ANION GAP 13.1 MEQ/L (5-15); Calcium 9.1 mg/dL (8.4-10.2); Creatinine 1 1.85 mg/dL (0.52-1.04); Potassium 4.5 mmol/L (3.5-5.1)
[2018-10-12] MEDS: CLINDAMYCIN-D5W 600 MG/50 ML*** 600 MG/50 ML BAG IV SCH (06:23)
[2018-10-12 06:39] LABS: Mean Corpuscular Hemoglobin 27.1 pg (26-32)
[2018-10-12 07:43] LABS: ANISOCYTOSIS 1+; BAND 1 % (0.0-2.0); Eosinophil 3 % (0.00-3.0); Lymphocytes 23 % (24-44); Monocyte 8 % (0.0-12.0); Neutrophils 65 % (36.0-66.0); Total Cells Counted 100
[2018-10-12 07:44] LABS: Platelet Estimate NORMAL (NORMAL); Toxic Granulation 1+
--- NOTE | 2018-10-12 08:51 | PCM.DS ---
Discharge Summary Date of Admission: 10/11/18 08:51 Admitting Physician: ROSALBA DAI Primary Care Provider: MAXIMILIANO VASQUEZ Allergies Allergies linezolid Allergy (Verified 10/10/18 06:48) Penicillins Allergy (Verified 10/10/18 06:48) Sulfa (Sulfonamide Antibiotics) [Sulfa(Sulfonamide Antibiotics)] Allergy ( Verified 10/10/18 06:48) Hospital Summary - Hospital Course Hospital Course: patient was admitted with redness and drainage from left lower leg. she is improved at this time. - Vitals & Intake/Output Vital Signs: Vital Signs Temperature 98.2 F 10/12/18 07:55 Pulse Rate 65 10/12/18 07:55 Respiratory Rate 18 10/12/18 07:55 Blood Pressure 98/41 10/12/18 07:55 O2 Sat by Pulse Oximetry 97 10/12/18 07:55 Intake & Output: Intake & Output 10/09/18 10/10/18 10/11/18 10/12/18 11:59 11:59 11:59 11:59 Intake Total 120 2073 1060 Output Total 200 Balance 120 2073 860 Weight 88.4 kg - Lab Result Diagrams: 10/12/18 05:30 10/12/18 05:00 Lab Results-Last 24 Hrs: Accuchecks Date 10/12/18 Date 10/11/18 Date 10/11/18 Date 10/11/18 Time 05:30 Time 16:30 Time 11:30 Time 08:56 Accucheck Value: 251 Accucheck Value: 239 Accucheck Value: 158 Accucheck Value: 83 Lab Results-Last 24 Hours 10/12/18 10/12/18 Range/Units 05:00 05:30 WBC 7.8 (4.0-10.5) K/mm3 RBC 2.87 L (4.1-5.4) M/mm3 Hgb 7.8 L (12.0-16.0) gm/dl Hct 26.1 L (35-47) % MCV 90.9 (78-100) fl MCH 27.1 (26-32) pg MCHC 29.9 L (32-36) g/dl RDW 16.3 H (11.5-14.0) % Plt Count 227 (150-450) K/mm3 MPV 9.2 (6-9.5) fl Segmented Neutrophils 65 (36.0-66.0) % Band Neutrophils 1 (0.0-2.0) % Lymphocytes (Manual) 23 L (24-44) % Monocytes (Manual) 8 (0.0-12.0) % Eosinophils (Manual) 3 (0.00-3.0) % Toxic Granulation 1+ Platelet Estimate NORMAL (NORMAL) RBC Morphology ABNORMAL Anisocytosis 1+ Sodium 140 (137-145) mmol/L Potassium 4.5 (3.5-5.1) mmol/L Chloride 100 (98-107) mmol/L Carbon Dioxide 31 H (22-30) mmol/L Anion Gap 13.1 (5-15) MEQ/L BUN 37 H (7-17) mg/dL Creatinine 1.85 H (0.52-1.04) mg/dL Estimated GFR 27.9 ML/MIN Glucose 68 L (74-106) mg/dL Calcium 9.1 (8.4-10.2) mg/dL NT-Pro-B Natriuret Pep 6600 H (0-1800) pg/mL Micro Results-Entire Visit: Microbiology 10/10/18 13:50 Wound Culture - Preliminary Leg - Left Lower ORGANISMS ISOLATED ARE CONSISTENT WITH NORMAL SKIN IAIN LIGHT GROWTH, NO PREDOMINANT ORGANISM 10/10/18 02:01 Blood Culture - Preliminary Blood NO GROWTH TO DATE 10/10/18 01:58 Blood Culture - Preliminary Blood NO GROWTH TO DATE Accuchecks Date 10/12/18 Date 10/11/18 Date 10/11/18 Date 10/11/18 Time 05:30 Time 16:30 Time 11:30 Time 08:56 Accucheck Value: 251 Accucheck Value: 239 Accucheck Value: 158 Accucheck Value: 83 - Radiology Exams Ordered Rad Exams-Entire Visit: Radiology Procedures Category Date Time Status CHEST 1 VIEW (PORTABLE) Routine Exams 10/10/18 18:40 Completed - Procedures and Test Procedures and Tests throughout Hospitalization: Therapy Orders & Screens 10/10/18 06:45 OT Screen per Nursing Assess ONCE Comment: Protocol Order Physician Instructions: Greater than 3 points order OT Admission Screening Reason For Exam: Triggered on Admission Diagnosis: Cellulitis to LLE Open Wound/Cellutlitis/Pressure Ulcers: Yes Acute Fx/ORIF/Change in wt bearing status: No Severe MUSCULOSKELETAL pain: No ADL Dysfunction: No Acute CVA w/Hemiparesis/Hemiplegia: No Decreased Functional Mobility/Strength: Yes Sprain/Strain: No Acute Post-op Mobility Dysfunction: No Total Points: 6 PT Screen per Nursing Assess ONCE Comment: Protocol Order Physician Instructions: Greater than 3 points order PT Admission Screenin Reason For Exam: Triggered on Admission Diagnosis: Cellulitis to LLE Open Wound/Cellutlitis/Pressure Ulcers: Yes Acute Fx/ORIF/Change in wt bearing status: No Severe MUSCULOSKELETAL pain: No ADL Dysfunction: No Acute CVA w/Hemiparesis/Hemiplegia: No Decreased Functional Mobility/Strength: Yes Sprain/Strain: No Acute Post-op Mobility Dysfunction: No Total Points: 6 Discharge Exam General Appearance: no apparent distress, alert Skin Exam: normal color, warm, dry Respiratory Exam: normal breath sounds, lungs clear, No respiratory distress Cardiovascular Exam: regular rate/rhythm, normal heart sounds Gastrointestinal/Abdomen Exam: soft, No tenderness, No mass Extremity Exam: normal inspection, normal range of motion, other (left lower leg mild redness) Final Diagnosis/Problem List - Final Discharge Diagnosis/Problem (1) Cellulitis of left lower extremity Current Visit: Yes Status: Acute Code(s): L03.116 - CELLULITIS OF LEFT LOWER LIMB (2) Acute on chronic systolic CHF (congestive heart failure) Current Visit: Yes Status: Acute Code(s): I50.23 - ACUTE ON CHRONIC SYSTOLIC (CONGESTIVE) HEART FAILURE (3) Atrial fibrillation Current Visit: No Status: Chronic Code(s): I48.91 - UNSPECIFIED ATRIAL FIBRILLATION (4) CAD (coronary artery disease) Current Visit: No Status: Chronic Code(s): I25.10 - ATHSCL HEART DISEASE OF [place] CORONARY ARTERY W/O ANG PCTRS (5) Diabetes mellitus type 2 in nonobese Current Visit: No Status: Chronic Onset Date: ~05/13/18 Code(s): E11.9 - TYPE 2 DIABETES MELLITUS WITHOUT COMPLICATIONS (6) Anemia Current Visit: Yes Status: Acute Code(s): D64.9 - ANEMIA, UNSPECIFIED - Discharge Disposition: [place] TO [facility] Condition: Stable Prescriptions: New Clindamycin HCl 300 mg PO TID #15 capsule Continue Rivaroxaban [Xarelto] 15 mg PO HS PANTOPRAZOLE 40 mg Tablet [Protonix 40MG Tablet] 40 mg PO BID Acetaminophen 325 mg [Tylenol 325 mg] 650 mg PO Q4HPRN PRN PRN Reason: Pain Tramadol HCl 25 mg PO [id number] PRN PRN Reason: Pain Potassium Chloride [K-Dur] 20 meq PO DAILY Phenazopyridine HCl [Pyridium] 200 mg PO Q8HPRN PRN PRN Reason: Pain Metoprolol Tartrate 12.5 mg PO BID Insulin Glargine [Lantus Insulin] 15 unit SQ HS Cyclobenzaprine HCl 5 mg PO Q8HPRN PRN PRN Reason: Pain Bumetanide [Bumex] 4 mg PO DAILY Atorvastatin Calcium 80 mg PO HS Aspirin EC 81 mg [Ecotrin 81 mg] 81 mg PO DAILY Gabapentin 300 mg PO HS Follow up with: MAXIMILIANO VASQUEZ [Primary Care Provider] - 1 Week
[2018-10-12] MEDS: BUMEX 1 MG IV SCH (10:27)
[2018-10-12] MEDS: ECOTRIN 81 MG PO SCH (10:27)
[2018-10-12] MEDS: Klor Con 10 MEQ PO SCH (10:27)
[2018-10-12] MEDS: FEOSOL 325 MG PO SCH (10:27)
[2018-10-12] MEDS: Protonix 40MG Tablet PO SCH (10:28)
[2018-10-12] MEDS: Lopressor 25MG Tab PO SCH (10:28)
[2018-10-12 12:01] VITALS: BP 106/58; PULSE 70; O2SAT 96
== END 2018-10-12 12:14 | DRG 602 ==
LOC: ED 23:59 → ICU 10-10 05:57 → OBSVTOIN 10-11 08:51
PROVIDERS: ADMIT Family Medicine; ATTEND Family Medicine
DX: L03.116 Cellulitis of left lower limb (principal); I50.23 Acute on chronic systolic (congestive) heart failure; I10 Essential (primary) hypertension; I48.91 Unspecified atrial fibrillation; E11.9 Type 2 diabetes mellitus without complications; D64.9 Anemia, unspecified; S81.812A Laceration without foreign body, left lower leg, initial encounter; I25.10 Atherosclerotic heart disease of native coronary artery without angina pectoris; Z86.73 Personal history of transient ischemic attack (TIA), and cerebral infarction without residual deficits; W22.8XXA Striking against or struck by other objects, initial encounter; Z79.4 Long term (current) use of insulin; Z79.899 Other long term (current) drug therapy
CPT/HCPCS: 36415; 71045; 73590; 80048; 80053; 82607; 82728; 82746; 82962; 83036; 83540; 83880; 83921; 84134; 85025; 85379; 87040; 87070; 99285; G0378; 87077; J1956; J3010; A9270-GY

== ENCOUNTER → 2018-10-09 | Emergency (ER) | payer MEDICARE | LOC: ED 23:55 ==

== ENCOUNTER 2018-12-20 15:38 | Emergency (ER) | payer MEDICARE ==
[2018-12-20] MEDS ORDERED: Sodium Chloride 0.9% 1000 ML 1,000 ML ONE (15:52)
[2018-12-20] MEDS ORDERED: Sodium Chloride 0.9% 1000 ML 1,000 ML IV STA (15:58)
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
[2018-12-20 16:34] LABS: Lactic Acid 2.3 (0.4-2.0)
[2018-12-20 16:35] LABS: BASOPHIL % 0.2 % (0.0-0.4); Basophil (Absolute #) 0.04 (0-0.4); Eosinophil % 0.7 % (0.00-5.0); Eosinophil (Absolute #) 0.13 (0-0.5); Granulocyte Absolute (ANC) 17.37 (1.4-6.9); Granulocytes % 86.8 % (36.0-66.0); Hematocrit 27.2 % (35-47); Lymphocyte (Absolute #) 1.37 (1.0-4.6); Lymphocytes % 6.9 % (24.0-44.0); Mean Cell Volume 88.6 fl (78-100); Mean Corpuscular Hgb Concent. 29.4 g/dl (32-36); Mean Platelet Volume 9.1 fl (6-9.5); Monocyte (Absolute #) 1.08 (0.0-1.3); Monocytes % 5.4 % (0.0-12.0); Platelet Count 345 K/mm3 (150-450); Red Blood Count 3.07 M/mm3 (4.1-5.4); Red Cell Distribution Width 20.2 % (11.5-14.0)
[2018-12-20] MEDS ORDERED: Vancomycin 1GM/ Ns 250ML*** 1 GM/250 ML IVPB IV ONE (16:40)
[2018-12-20 16:45] LABS: INR 1.66 (0.8-3.0)
[2018-12-20 16:48] LABS: PTT 42.4 SECONDS (25.3-37.0)
[2018-12-20 17:04] LABS: ALBUMIN 2.4 g/dL (3.5-5.0); ANION GAP 12.6 MEQ/L (5-15); BILIRUBIN,TOTAL 0.3 mg/dL (0.2-1.3); Calcium 8.2 mg/dL (8.4-10.2); Creatinine 1 1.73 mg/dL (0.52-1.04); Potassium 4.5 mmol/L (3.5-5.1); Total Protein 5.5 g/dL (6.3-8.2)
[2018-12-20] MEDS ORDERED: Vancomycin 1GM/ Ns 250ML*** 250 ML IV ONE (17:24)
[2018-12-20] MEDS ORDERED: MAXIPIME 1 GM** 1 G in Sodium Chloride 0.9% 100 ML IVPB 100 ML IV STA (17:41)
[2018-12-20 17:53] VITALS: PULSE 88; O2SAT 100
[2018-12-20 18:18] VITALS: BP 96/56
== END 2018-12-20 18:46 | disposition short-term general hospital (02) ==
LOC: ED 15:38
DX: I73.9 Peripheral vascular disease, unspecified (principal); I95.89 Other hypotension; Z79.899 Other long term (current) drug therapy; L97.829 Non-pressure chronic ulcer of other part of left lower leg with unspecified severity; L97.819 Non-pressure chronic ulcer of other part of right lower leg with unspecified severity; L97.519 Non-pressure chronic ulcer of other part of right foot with unspecified severity
CPT/HCPCS: 36000; 36415; 80053; 83605; 85025; 85379; 85610; 85730; 87040; 96360; 96365; 96367; 99285; 99291; J0692; J3370